=== PATIENT | male | born 1960 | race Caucasian/White ===

== ENCOUNTER 2019-04-27 12:04 | Observation (INO) ==
[2019-04-27] MEDS ORDERED: Hyoscyamine SL 0.125 MG TAB.SUBL SL PRN (12:52)
[2019-04-27] MEDS ORDERED: *HR* Belladonna Alkaloids/Opium 60 MG RECTAL SUPPOSITORY RC PRN (12:52)
[2019-04-27] MEDS ORDERED: Ondansetron 4 MG/2 ML VIAL IVP PRN (12:52)
[2019-04-27] MEDS ORDERED: Naloxone 0.4 MG/ML INJ IVP PRN (12:52)
[2019-04-27] MEDS ORDERED: Acetaminophen 325 MG TABLET PO PRN (13:00)
[2019-04-27 14:05] LABS: Basophils % 0.4 %; Eosinophils # 0.1 K/mcL (0.0-0.6); Eosinophils % 0.9 %; Immature Granulocytes % 0.4 % (0-4); Lymphocytes # 1.2 K/mcL (0.6-4.6); Mean Corpuscular HGB Conc 34.1 g/dL (31.6-35.5); Mean Corpuscular Hemoglobin 31.3 pg (28.0-33.3); Mean Corpuscular Volume 91.7 fL (83.0-100.0); Monocytes # 0.6 K/mcL (0.0-1.3); Monocytes % 7.6 %; Neutrophils # 6.3 K/mcL (1.6-8.9); Platelet Count 230 K/mcL (140-400); Red Blood Count 4.47 M/mcL (4.19-5.50); Red Cell Distribution Width 11.8 % (11.5-14.5); Segmented Neutrophils % 76.7 %; White Blood Count 8.2 K/mcL (4.3-11.1)
[2019-04-27] MEDS: *HR* OxyCODONE/APAP 5/325 TABLET PO PRN ×3 (14:24→23:54)
[2019-04-27 14:25] LABS: BUN/Creatinine Ratio 17 (6-26); Blood Urea Nitrogen 23 mg/dL (6-20); Calcium 9.8 mg/dL (8.6-10.3); Carbon Dioxide 25 mEq/L (23-29); Chloride 104 mEq/L (98-107); Glucose 91 mg/dL (70-105); Osmolality,Calculated 285 (280-300); Potassium 3.9 mEq/L (3.5-5.1); Sodium 136 mEq/L (136-145); Uric Acid 4.9 mg/dL (2.3-7.6); eGFR For African Americans > 60 (> 60); eGFR For Non-African Americans 54 (> 60)
[2019-04-27] MEDS: 0.9 % Sodium Chloride 1,000 ML IVC SCH (14:25)
[2019-04-28] MEDS: 0.9 % Sodium Chloride 1,000 ML IVC SCH (04:25)
[2019-04-28] MEDS: *HR* OxyCODONE/APAP 5/325 TABLET PO PRN (04:25)
[2019-04-28] MEDS ORDERED: ceFAZolin 2,000 MG in 0.9 % Sodium Chloride 100 ML IVPB ONE (06:00)
[2019-04-28] MEDS ORDERED: Metoprolol XL (24 HR) Succ 50 MG TAB.ER.24H PO SCH (06:30)
[2019-04-28] MEDS ORDERED: Levothyroxine 25 MCG TABLET PO SCH (06:30)
[2019-04-28] MEDS ORDERED: *HR* FentaNYL (PF) 100 MCG/2 ML VIAL ONE ×2 (07:12→08:28)
[2019-04-28] MEDS ORDERED: *HR* Propofol 200 MG/20 ML VIAL IVP ONE (07:12)
[2019-04-28] MEDS ORDERED: *HR* Midazolam HCl 2 MG/2 ML VIAL ONE (07:13)
[2019-04-28] MEDS ORDERED: Ondansetron 4 MG/2 ML VIAL ONE (07:13)
[2019-04-28] MEDS ORDERED: Dexamethasone 4 MG/ML VIAL ONE (07:13)
[2019-04-28] MEDS ORDERED: Lidocaine -MPF 2% 2 ML VIAL ONE (07:13)
[2019-04-28] MEDS ORDERED: EPHEDrine 50 MG/ML VIAL ONE (08:27)
[2019-04-28] MEDS ORDERED: Acetaminophen IV 1,000 MG/100 ML INFUS..BTL ONE (08:56)
[2019-04-28] MEDS ORDERED: Acetaminophen 325 MG TABLET PO PRN (09:55)
[2019-04-28] MEDS ORDERED: Naloxone 0.4 MG/ML INJ IVP PRN (09:55)
[2019-04-28] MEDS ORDERED: *HR* OxyCODONE/APAP 5/325 TABLET PO PRN (09:55)
[2019-04-28] MEDS ORDERED: Ondansetron 4 MG/2 ML VIAL IVP PRN (09:55)
[2019-04-28] MEDS ORDERED: Aspirin 81 MG TAB.CHEW PO SCH (09:55)
[2019-04-28] MEDS ORDERED: gemfibroziL 600 MG TABLET PO SCH (09:55)
[2019-04-28] MEDS ORDERED: NON-FORMULARY MEDICATION 1 EACH EACH (Metoprolol Succinate [Toprol Xl] 100 MG) PO SCH (09:55)
[2019-04-28] MEDS ORDERED: *HR* Belladonna Alkaloids/Opium 60 MG RECTAL SUPPOSITORY RC PRN (09:55)
[2019-04-28] MEDS ORDERED: Hyoscyamine SL 0.125 MG TAB.SUBL SL PRN (09:55)
[2019-04-28 12:44] VITALS: BP 119/70
[2019-04-29] MEDS ORDERED: Metoprolol XL (24 HR) Succ 50 MG TAB.ER.24H PO SCH (06:30)
[2019-04-29] MEDS ORDERED: Levothyroxine 25 MCG TABLET PO SCH ×2 (06:30)
[2019-05-04 00:20] LABS: Calculi Mass 17 mg
== END 2019-04-28 12:42 | disposition home or self-care (01) ==
LOC: 3ANU
PROVIDERS: ADMIT Urology; ATTEND Urology